=== PATIENT | female | born 1960 | race Caucasian/White ===

== ENCOUNTER 2017-10-31 06:30 | Day surgery (SDC) | payer BC ==
[2017-10-26 13:29] VITALS: BMI 46.3
[2017-10-31] MEDS ORDERED: Lactated Ringer's 1,000 ML IV ONE (08:39)
[2017-10-31] MEDS ORDERED: Propofol 10 mg/ml Inj (20 ML) ONE (08:41)
[2017-10-31 09:16] VITALS: TEMP 97.1; O2SAT 100
[2017-10-31 10:27] VITALS: BP 119/60; PULSE 65; RESP 18
== END 2017-10-31 10:05 | disposition home or self-care (01) ==
LOC: C.ENDO 06:30 → MERGE 09:00 → C.ENDO 10:05
PROVIDERS: ATTEND Internal Medicine Gastroenterology
DX: E66.01 Morbid (severe) obesity due to excess calories (principal); Z01.818 Encounter for other preprocedural examination; K29.80 Duodenitis without bleeding; K31.9 Disease of stomach and duodenum, unspecified; K44.9 Diaphragmatic hernia without obstruction or gangrene; K29.70 Gastritis, unspecified, without bleeding
CPT/HCPCS: 43239; 84703; 88305; J2001; J2704; J7120